=== PATIENT | female | born 1990 | race Caucasian/White ===

== ENCOUNTER 2017-04-07 00:03 | Emergency (ER) | payer OTHER ==
[2017-04-07 00:09] VITALS: RESP 18
[2017-04-07] MEDS ORDERED: KETOROLAC 30 MG/ML 1 ML VIAL IVP STA (01:10)
[2017-04-07] MEDS ORDERED: METOCLOPRAMIDE 5 MG/ML 2 ML VIAL IVP STA (01:10)
[2017-04-07] MEDS ORDERED: SODIUM CHLORIDE 0.9% 500 ML IV ONE (01:10)
[2017-04-07] MEDS ORDERED: diphenhydrAMINE 50 MG/ML 1 ML VIAL IVP STA (01:10)
--- NOTE | 2017-04-07 01:43 | ED ---
Headache HPI - General Chief Complaint: Headache Stated Complaint: Headache Time Seen by Provider: 04/07/17 01:00 Source: patient, RN notes reviewed Mode of arrival: ambulatory Limitations: no limitations - History of Present Illness Initial Comments: This is a 26-year-old female presents emergency Department chief complaint migraine headache. Patient that she has long history of migraine headaches. She states that she took a Fioricet earlier today and also pain pill with no relief of her symptoms. She states is is her typical type of headache but seems slightly worse but not the worst headache of her life. Denies any trauma no fever no chills or neck stiffness. She states she has photophobia and nausea and vomiting. Patient states that occasionally she does have some emergency department for medications. states the headache started this afternoon. Patient has NO KNOWN DRUG ALLERGIES. Denies any chance . - Related Data Home Medications Medication Instructions Recorded Confirmed Butalb/Acetaminophen/Caffeine 1 - 2 cap PO Q4HR 04/07/17 04/07/17 [Fioricet 50-300-40 mg Capsule] Allergies Allergy/AdvReac Type Severity Reaction Status Date / Time No Known Allergies Allergy Verified 04/07/17 00:09 Review of Systems ROS Statement: Those systems with pertinent positive or pertinent negative responses have been documented in the HPI. ROS Other: All systems not noted in ROS Statement are negative. Past Medical History Past Medical History: No Reported History Additional Past Medical History / Comment(s): Migraines History of Any Multi-Drug Resistant Organisms: None Reported Past Surgical History: Tonsillectomy Past Anesthesia/Blood Transfusion Reactions: No Reported Reaction Past Psychological History: No Psychological Hx Reported Smoking Status: Never smoker Past Alcohol Use History: None Reported Past Drug Use History: Marijuana - Past Family History Mother Family Medical History: Pneumonia General Exam Limitations: no limitations General appearance: alert, in no apparent distress Head exam: Present: atraumatic, normocephalic, normal inspection Eye exam: Present: normal appearance, PERRL, EOMI. Absent: scleral icterus, conjunctival injection, periorbital swelling ENT exam: Present: normal exam, normal oropharynx, mucous membranes moist, TM's normal bilaterally, normal external ear exam Neck exam: Present: normal inspection, full ROM. Absent: tenderness, meningismus, lymphadenopathy Respiratory exam: Present: normal lung sounds bilaterally. Absent: respiratory distress, wheezes, rales, rhonchi, stridor Cardiovascular Exam: Present: regular rate, normal rhythm, normal heart sounds. Absent: systolic murmur, diastolic murmur, rubs, gallop, clicks Neurological exam: Present: alert, oriented X3, CN II-XII intact, reflexes normal. Absent: motor sensory deficit Course Vital Signs 04/07/17 00:06 Temperature 98.0 F Pulse Rate 99 Respiratory 18 Rate Blood Pressure 133/86 O2 Sat by Pulse 99 Oximetry Medical Decision Making - Medical Decision Making 26-year-old female presented emergency department with chief complaint of headache. Patient states her headache is improving at this time. Patient has no neurological deficits. Patient will be discharged return parameters were discussed. Disposition Clinical Impression: Migraine Disposition: HOME SELF-CARE Condition: Stable Instructions: Acute Headache (ED) Additional Instructions: Please return to the Emergency Department if symptoms worsen or any other concerns. Referrals: Flavio Hyatt MD [Primary Care Provider] - 1-2 days Time of Disposition: 02:17
[2017-04-07 02:34] VITALS: BP 113/59; PULSE 96; TEMP 97.7
== END 2017-04-07 02:35 | disposition home or self-care (01) ==
LOC: EC 00:03
DX: G43.909 Migraine, unspecified, not intractable, without status migrainosus (principal); Z79.899 Other long term (current) drug therapy
CPT/HCPCS: 99284; 96374; 96375 ×2; 96361; J1200; J2765; J1885

== ENCOUNTER 2020-10-07 04:05 | Inpatient (IN) | payer BC, OTHER ==
[2020-10-07] MEDS ORDERED: LIDOCAINE 0.5% (PF) 5 MG/ML (50 ML SDV) SQ PRN (04:30)
[2020-10-07] MEDS ORDERED: TERBUTALINE 1 MG/ML VIAL SQ PRN (04:30)
[2020-10-07] MEDS ORDERED: OXYTOCIN 10 UNIT/ML 1 ML VIAL IM PRN (04:30)
[2020-10-07] MEDS ORDERED: OXYTOCIN 30 UNITS/500 ML NS 30 UNIT in SALINE 1 500ML.BAG IV SCH (04:30)
[2020-10-07] MEDS ORDERED: CARBOPROST TROMETHAMINE 250 MCG/ML 1 ML AMP IM PRN (04:30)
[2020-10-07] MEDS ORDERED: METHYLERGONOVINE 0.2 MG/ML 1 ML AMP IM PRN (04:30)
[2020-10-07] MEDS ORDERED: LACTATED RINGERS 1,000 ML IV SCH (04:30)
[2020-10-07 04:57] LABS: Basophils % (A) 0 %; Eosinophils # (A) 0.1 k/uL (0-0.7); Eosinophils % (A) 1 %; HCT 37.3 % (34.0-46.0); Lymphocytes # (A) 1.7 k/uL (1.0-4.8); Lymphocytes % (A) 14 %; MCH 33.9 pg (25.0-35.0); MCV 96.9 fL (80.0-100.0); Mean Platelet Volume 7.2; Monocytes # (A) 0.7 k/uL (0-1.0); Monocytes % (A) 6 %; Neutrophils # (A) 9.9 k/uL (1.3-7.7); Neutrophils % (A) 79 %; Platelet Count 177 k/uL (150-450); RBC 3.85 m/uL (3.80-5.40); RDW 13.7 % (11.5-15.5); WBC 12.6 k/uL (3.8-10.6)
[2020-10-07] MEDS: BUTORPHANOL 1 MG/ML 1 ML VIAL IV PRN ×2 (05:28→08:08)
--- NOTE | 2020-10-07 08:17 | P.HPOB ---
History of Present Illness H&P Date: 10/07/20 Chief Complaint: 39+ weeks, early labor The patient is a 30-year-old 2 para 1001 admitted at 39+ weeks as established by last menstrual period and confirmed by second trimester ultrasound. She is admitted in early active labor having made change from 1 cm to 3 cm of dilation with regular contractions. Her has been uncomplicated and group B strep status is negative. On labor and delivery, all signs reassuring with a category 1 heart rate tracing. Obstetrical history: 2 para 1001 with 1 term vaginal delivery without complications. Current statistics are listed in history of present illness. EDC of 10/12/2020 was established by last menstrual period and confirmed by second trimester ultrasound. Laboratory workup demonstrates a blood type of O+ with a negative antibody screen. Rubella status is immune. The remainder of the laboratory workup was within normal limits. One hour Glucola was elevated but followed by a normal three-hour glucose tolerance test. Group B strep status is negative. Gynecologic history: Unremarkable with no history of any infections to include STDs. Review of Systems Review of systems is confined to history of present illness. Past Medical History Past Medical History: No Reported History Additional Past Medical History / Comment(s): Migraines History of Any Multi-Drug Resistant Organisms: None Reported Past Surgical History: Tonsillectomy Past Anesthesia/Blood Transfusion Reactions: No Reported Reaction Past Psychological History: No Psychological Hx Reported Smoking Status: Never smoker Past Alcohol Use History: None Reported Past Drug Use History: Marijuana Additional Drug Use History / Comment(s): hx of thc- quit per pt - Past Family History Mother Family Medical History: COPD, Hyperlipidemia, Hypertension, Pneumonia Sister(s) Family Medical History: Asthma Medications and Allergies Home Medications Medication Instructions Recorded Confirmed Type Acetaminophen [Tylenol] 500 mg PO DIRECTED PRN 10/07/20 10/07/20 History Aspirin [Adult Low Dose Aspirin EC] 81 mg PO DAILY 10/07/20 10/07/20 History Ferrous Sulfate [Feosol] 325 mg PO DAILY 10/07/20 10/07/20 History Pnv,Calcium 72/Iron/Folic Acid 1 each PO DAILY 10/07/20 10/07/20 History [ Plus Tablet] Allergies Allergy/AdvReac Type Severity Reaction Status Date / Time No Known Allergies Allergy Verified 10/07/20 04:12 Exam Vital Signs Temp Pulse Resp BP Pulse Ox 10/07/20 04:23 96.8 F L 90 18 136/80 100 10/07/20 04:14 96.8 F L 83 16 136/80 100 Intake and Output 10/06/20 10/07/20 10/07/20 22:59 06:59 14:59 Other: Weight 78.925 kg In general, this is a well-developed, well-nourished white female in some disco mfort as she is in active labor. Her heart has a regular rhythm and rate without murmur. Her lungs are clear to auscultation bilaterally in all wheeler. Her abdomen is gravid, nondistended, has normal active bowel sounds, soft, nontender, and without any palpable masses aside from the uterine fundus. Her extremities are without any cyanosis, clubbing, or significant edema and are nontender to palpation bilaterally. Digital cervical examination at this time demonstrates her surgery at 8 cm dilated, 80% effaced, with vertex in presentation at -1 station. Artificial rupture of membranes is carried out demonstrating clear fluid. Results Result Diagrams: 10/07/20 04:30 Abnormal Lab Results - Last 24 Hours (Table) 10/07/20 Range/Units 04:30 WBC 12.6 H (3.8-10.6) k/uL Neutrophils # 9.9 H (1.3-7.7) k/uL Assessment and Plan (1) Spontaneous onset of labor Current Visit: Yes Status: Acute Code(s): DAG3845 - SNOMED Code(s): 62579225 (2) 39 weeks gestation of Current Visit: Yes Status: Acute Code(s): Z3A.39 - 39 WEEKS GESTATION OF SNOMED Code(s): 75389475 Plan: The patient has been admitted for close maternal and surveillance and expectant management will be continued. She is a good candidate for either IV or epidural analgesia but is declining epidural. I would anticipate normal spontaneous vaginal delivery in the near future.
[2020-10-07] MEDS ORDERED: ROPIVACAINE 5MG/ML 20ML VIAL ONE (10:04)
[2020-10-07] MEDS ORDERED: fentaNYL (PF) 50 MCG/ML 5 ML AMP ONE (10:04)
[2020-10-07] MEDS ORDERED: SODIUM CHLORIDE 0.9% 100 ML BAG ONE (10:04)
[2020-10-07] MEDS ORDERED: ACETAMINOPHEN TAB 325 MG TAB PO PRN (11:56)
[2020-10-07] MEDS ORDERED: diphenhydrAMINE 50 MG CAP PO PRN (11:56)
[2020-10-07] MEDS ORDERED: ZOLPIDEM 5 MG TAB PO PRN (11:56)
[2020-10-07] MEDS ORDERED: diphenhydrAMINE 50 MG/ML 1 ML VIAL IVP PRN ×2 (11:56)
[2020-10-07] MEDS ORDERED: LANOLIN CREAM 5 GM TUBE TOPICAL PRN (11:56)
[2020-10-07] MEDS ORDERED: BENZOCAINE/MENTHOL SPRAY 1 GM/SPRAY AEROSOL TOPICAL PRN (11:56)
[2020-10-07] MEDS ORDERED: SIMETHICONE 80 MG CHEWABLE PO PRN (11:56)
[2020-10-07] MEDS ORDERED: diphenhydrAMINE 25 MG CAP PO PRN (11:56)
[2020-10-07] MEDS ORDERED: HYDROCORTISONE 2.5% RECTAL CREAM 30 GM TUBE RECTAL PRN (11:56)
--- NOTE | 2020-10-07 11:56 | P.PROBDLV ---
Vaginal Delivery Note - . Vaginal Delivery Note: This is a 30-year-old white female 2 para 1001 EDC 12-20 at 39-2/7 weeks' gestation. Patient presented with a history of uterine contractions at home, in active labor. remarkable for blood type O+, rubella status immune, group B strep cultures negative. Please see dictated history and physical for details. Artificial amniorrhexis revealed clear fluid. Ultimately patient became uncomfortable and an epidural was placed. Oxytocin augmentation was also given a small dose. She became completely dilated at 1045 hrs. and began the second stage of labor at that time. She progressed successfully in the second stage, ultimately the perineal body was prepped and draped in usual sterile fashion. 's head delivered occiput anterior and he restituted accordingly. There was no nuchal cord noted. The right or anterior shoulder was gently delivered from underneath the pubic symphysis at which time the oropharynx, nasopharynx, and external nares were all bulb suctioned. Patient was officially delivered of a liveborn male at 1140 hrs. Umbilical cord was doubly clamped and ligated, he was handed to waiting nurses for evaluation where scores of 9 and 9 at one and 5 minutes respectively were given. Placenta was delivered spontaneously, with active management of the second stage of labor, delivered at 1143 hours. It was inspected and noted to be fully intact with trivascular cord. No meconium staining. Uterus is then massaged. Careful inspection of the cervix, vagina, perineum, periurethral, and perirectal areas revealed a very small superficial right laceration, first-degree but not requiring stitches. weighs 8 lbs. 4 oz. or 3740 g. The patient and her are allowed to begin the bonding experience in the LDR. Patient is requesting circumcision for her infant son. Total estimated blood loss 200 mL's.
[2020-10-07] MEDS ORDERED: OXYTOCIN 20 UNITS/1000 ML NS 1,000 ML IV SCH (12:00)
[2020-10-07] MEDS: IBUPROFEN 600 MG TAB PO PRN (15:40)
[2020-10-07] MEDS: SENNOSIDES-DOCUSATE SODIUM 1 EACH TAB PO SCH (19:59)
[2020-10-08] MEDS: IBUPROFEN 600 MG TAB PO PRN ×3 (02:58→19:15)
[2020-10-08 07:12] LABS: Basophils % (A) 0 %; Eosinophils # (A) 0.1 k/uL (0-0.7); Eosinophils % (A) 1 %; HCT 33.3 % (34.0-46.0); HGB 11.4 gm/dL (11.4-16.0); Lymphocytes # (A) 1.7 k/uL (1.0-4.8); Lymphocytes % (A) 13 %; MCH 33.5 pg (25.0-35.0); MCHC 34.2 g/dL (31.0-37.0); Mean Platelet Volume 7.4; Monocytes # (A) 0.5 k/uL (0-1.0); Monocytes % (A) 4 %; Neutrophils % (A) 80 %; Platelet Count 152 k/uL (150-450); RBC 3.39 m/uL (3.80-5.40); RDW 13.2 % (11.5-15.5); WBC 12.6 k/uL (3.8-10.6)
--- NOTE | 2020-10-08 08:16 | P.PNOBGVD ---
Subjective - Subjective Patient reports: Reports appetite normal, Reports voiding normally, Reports pain well controlled, Reports ambulating normally : doing well, in NICU (Was initially found with a pneumothorax which has resolved, requiring high flow oxygen currently.) Objective - Latest Vital Signs Latest vital signs: Vital Signs Temp Pulse Resp BP Pulse Ox 10/07/20 23:30 97.0 F L 95 16 143/76 99 10/07/20 20:00 97.7 F 103 H 16 125/78 98 10/07/20 16:00 86 16 125/79 96 10/07/20 14:01 98.2 F 96 16 119/67 10/07/20 13:31 95 16 118/63 10/07/20 13:01 113 H 16 124/63 10/07/20 12:46 99 16 115/61 10/07/20 12:31 100 16 110/58 10/07/20 12:16 103 H 16 109/63 10/07/20 12:01 98.7 F 112 H 16 121/60 98 Intake and Output 10/07/20 10/08/20 10/08/20 22:59 06:59 14:59 Output Total 200 Balance -200 Output: Estimated Blood Loss 200 Other: # Voids 1 2 - Exam Extremities: Present: normal Abdomen: Present: normal appearance, soft Uterus: Present: normal, firm (The uterine fundus is tonic and nontender below the umbilicus.) - Labs Labs: Abnormal Lab Results - Last 24 Hours (Table) 10/08/20 Range/Units 06:49 WBC 12.6 H (3.8-10.6) k/uL RBC 3.39 L (3.80-5.40) m/uL Hct 33.3 L (34.0-46.0) % Neutrophils # 10.0 H (1.3-7.7) k/uL Assessment and Plan (1) Spontaneous onset of labor Current Visit: Yes Status: Acute Code(s): NCH8929 - SNOMED Code(s): 20199689 (2) 39 weeks gestation of Current Visit: Yes Status: Acute Code(s): Z3A.39 - 39 WEEKS GESTATION OF SNOMED Code(s): 72105146 (3) Normal spontaneous vaginal delivery Current Visit: No Status: Acute Code(s): O80 - ENCOUNTER FOR FULL-TERM UNCOMPLICATED DELIVERY SNOMED Code(s): 46796847 Plan: Continue routine care as the remains in the nursery. I would anticipate discharge home tomorrow pending applications.
[2020-10-08] MEDS: SENNOSIDES-DOCUSATE SODIUM 1 EACH TAB PO SCH ×2 (08:35→19:16)
[2020-10-09] MEDS: IBUPROFEN 600 MG TAB PO PRN ×2 (07:03→16:22)
[2020-10-09] MEDS: SENNOSIDES-DOCUSATE SODIUM 1 EACH TAB PO SCH (07:04)
--- NOTE | 2020-10-09 11:23 | P.DS ---
Providers Date of admission: 10/07/20 04:18 Expected date of discharge: 10/09/20 Attending physician: Valeria Tobin Primary care physician: Stated None - Discharge Diagnosis(es) (1) Spontaneous onset of labor Current Visit: Yes Status: Acute (2) 39 weeks gestation of Current Visit: Yes Status: Acute (3) Normal spontaneous vaginal delivery Current Visit: No Status: Acute Hospital Course: The patient is a 30-year-old 2 para 1001 admitted at 39+ weeks by good dating parameters perches admitted in early active labor with all signs reassuring. Her was uncomplicated and group B strep status was negative. On labor and delivery, she made fairly rapid progress through the active phase of labor and had artificial rupture of membranes carried out demonstrating clear fluid. She then stalled at approximately anterior lip for some time but ultimately did progress to complete and then pushed to a normal spontaneous vaginal delivery of a viable 8 lbs. 4 oz. baby boy with Apgars of 9 at 1 minute and 9 at 5 minutes. Her course was unremarkable with vital signs remaining stable and her temperature was afebrile throughout. The , however, was found with a pneumothorax following delivery and was admitted to the special care nursery where he remains today though is doing well and likely be discharged tomorrow. The patient herself was deemed stable for discharge on day #2 was discharged home to follow-up in the office in 6 weeks' time routinely. Discharge instructions included calling for any significantly increased bleeding or foul-smelling lochia, significantly increased fever abdominal pain, perineal complaints, breast complaints, or anything else that concerned her. She is additionally instructed to have nothing in the vagina for at least 6 weeks time to include intercourse. She understood her instructions and agrees to follow up as noted above. Discharge medications included continued vitamins as she has opted to breast-feed as well as [id number] analgesic pain medications. Maternal blood type is O+ and rubella status is immune. Procedures: #1. Artificial rupture of membranes #2. Epidural analgesia #3. Normal spontaneous vaginal delivery #4. Repair of perineal laceration Patient Condition at Discharge: Stable Plan - Discharge Summary New Discharge Prescriptions: No Action Ferrous Sulfate [Feosol] 325 mg PO DAILY Acetaminophen [Tylenol] 500 mg PO DIRECTED PRN PRN Reason: Pain Pnv,Calcium 72/Iron/Folic Acid [ Plus Tablet] 1 each PO DAILY Aspirin [Adult Low Dose Aspirin EC] 81 mg PO DAILY Discharge Medication List Acetaminophen [Tylenol] 500 mg PO DIRECTED PRN 10/07/20 [History] Aspirin [Adult Low Dose Aspirin EC] 81 mg PO DAILY 10/07/20 [History] Ferrous Sulfate [Feosol] 325 mg PO DAILY 10/07/20 [History] Pnv,Calcium 72/Iron/Folic Acid [ Plus Tablet] 1 each PO DAILY 10/07/20 [History] Follow up Appointment(s)/Referral(s): Valeria Tobin MD [STAFF PHYSICIAN] - 6 Weeks Discharge Disposition: HOME SELF-CARE
[2020-10-09 16:37] VITALS: BP 131/78; PULSE 86; RESP 16; TEMP 97.9
== END 2020-10-09 18:00 | disposition home or self-care (01) | DRG 807 ==
LOC: FBPOP 04:05 → 4FBP 04:18
PROVIDERS: ADMIT Obstetrics & Gynecology; ATTEND Obstetrics & Gynecology
PROC: 10E0XZZ Delivery of Products of Conception, External Approach (ICD-10-PCS; principal; 2020-10-07)
PROC: 10907ZC Drainage of Amniotic Fluid, Therapeutic from Products of Conception, Via Natural or Artificial Opening (ICD-10-PCS; 2020-10-07)
PROC: 3E0R3NZ Introduction of Analgesics, Hypnotics, Sedatives into Spinal Canal, Percutaneous Approach (ICD-10-PCS; 2020-10-07)
PROC: 00HU33Z Insertion of Infusion Device into Spinal Canal, Percutaneous Approach (ICD-10-PCS; 2020-10-07)
DX: O70.0 First degree perineal laceration during delivery (principal); Z37.0 Single live birth; Z3A.39 39 weeks gestation of pregnancy; Z79.82 Long term (current) use of aspirin; Z82.49 Family history of ischemic heart disease and other diseases of the circulatory system; Z82.5 Family history of asthma and other chronic lower respiratory diseases
CPT/HCPCS: 59025; 85025; 86850; 86900; 86901; 99213

== ENCOUNTER 2024-02-07 23:34 | Inpatient (IN) | payer OTHER ==
[2024-02-08] MEDS ORDERED: LIDOCAINE 0.5% (PF) 5 MG/ML (50 ML SDV) SQ PRN (00:02)
[2024-02-08] MEDS ORDERED: METHYLERGONOVINE 0.2 MG/ML 1 ML AMP IM PRN (00:02)
[2024-02-08] MEDS ORDERED: miSOPROStoL 200 MCG TAB PO PRN (00:02)
[2024-02-08] MEDS ORDERED: OXYTOCIN 10 UNIT/ML 1 ML VIAL IM PRN (00:02)
[2024-02-08] MEDS ORDERED: TRANEXAMIC 1,000 MG/100ML-NACL 1,000 MG in EMPTY BAG 1 BAG IV PRN (00:02)
[2024-02-08] MEDS ORDERED: TERBUTALINE 1 MG/ML VIAL SQ PRN (00:02)
[2024-02-08] MEDS ORDERED: CARBOPROST TROMETHAMINE 250 MCG/ML 1 ML AMP IM PRN (00:02)
[2024-02-08] MEDS ORDERED: OXYTOCIN 30 UNITS/500 ML NS 30 UNIT in SALINE 1 500ML.BAG IV SCH (00:15)
[2024-02-08 00:23] LABS: Basophils # (A) 0.1 k/uL (0-0.2); Basophils % (A) 0 %; Eosinophils # (A) 0.2 k/uL (0-0.7); Eosinophils % (A) 1 %; HCT 39.3 % (34.0-46.0); HGB 13.1 gm/dL (11.4-16.0); Lymphocytes # (A) 1.9 k/uL (1.0-4.8); Lymphocytes % (A) 12 %; MCH 31.1 pg (25.0-35.0); MCHC 33.3 g/dL (31.0-37.0); MCV 93.4 fL (80.0-100.0); Mean Platelet Volume 7.7; Monocytes # (A) 0.7 k/uL (0-1.0); Monocytes % (A) 5 %; Neutrophils # (A) 12.8 k/uL (1.3-7.7); Neutrophils % (A) 81 %; Platelet Count 238 k/uL (150-450); RBC 4.21 m/uL (3.80-5.40); RDW 13.7 % (11.5-15.5); WBC 15.9 k/uL (3.8-10.6)
[2024-02-08] MEDS ORDERED: SODIUM CHLORIDE 0.9% 250 ML BAG ONE (00:40)
[2024-02-08] MEDS ORDERED: ROPIVACAINE 5 MG/ML 30 ML VIAL ONE (00:40)
[2024-02-08] MEDS ORDERED: fentaNYL (PF) 50 MCG/ML 5 ML AMP ONE (00:40)
[2024-02-08] MEDS: LACTATED RINGERS 1,000 ML IV SCH (00:52)
--- NOTE | 2024-02-08 01:28 | P.HPOB ---
History of Present Illness H&P Date: 02/08/24 Chief Complaint: Labor at 39-5/7 weeks This is a 33-year-old 4 para 2012 woman who is admitted at 39-5/7 weeks gestation in spontaneous active labor. She has an estimated due date of 02/09/2024 based on LMP consistent with first trimester ultrasound. She reports onset of regular painful contractions earlier in the day. She denies leakage of fluid or vaginal bleeding her has been uncomplicated. She has had an upper respiratory tract infection for several days and a history of asthma. Laboratory data: Blood type O positive, antibody screen negative, rubella immune, VDRL nonreactive, hepatitis B surface antigen negative, HIV negative, hepatitis C negative, gonorrhea and clinic cultures negative, glucose tolerance testing within normal limits, group B strep negative Obstetric history: Normal spontaneous vaginal deliveries 2014 and 2019. First trimester missed AB 2022 Medical history asthma and migraine headaches Past surgical history tonsillectomy Social history engaged to be , negative for tobacco alcohol and drug use. Family history noncontributory Review of Systems All systems: negative Past Medical History Past Medical History: Asthma Additional Past Medical History / Comment(s): Migraines History of Any Multi-Drug Resistant Organisms: None Reported Past Surgical History: Tonsillectomy Past Anesthesia/Blood Transfusion Reactions: No Reported Reaction Past Psychological History: Anxiety Smoking Status: Never smoker Past Alcohol Use History: None Reported Past Drug Use History: Marijuana Additional Drug Use History / Comment(s): hx of thc- quit per pt - Past Family History Mother Family Medical History: COPD, Hyperlipidemia, Hypertension, Pneumonia Sister(s) Family Medical History: Asthma Medications and Allergies Home Medications Medication Instructions Recorded Confirmed Type Acetaminophen [Tylenol] 500 mg PO DIRECTED PRN 10/07/20 10/07/20 History Aspirin [Adult Low Dose Aspirin EC] 81 mg PO DAILY 10/07/20 02/07/24 History Vit No.180/Iron/Folic 1 each PO DAILY 10/07/20 02/07/24 History [ Plus Tablet] Allergies Allergy/AdvReac Type Severity Reaction Status Date / Time No Known Allergies Allergy Verified 10/07/20 04:12 Exam Vital Signs Temp Pulse Resp BP Pulse Ox 02/08/24 00:01 97.7 F 90 16 138/83 100 02/07/24 23:36 97.7 F 90 18 138/83 100 Intake and Output 02/07/24 02/07/24 02/08/24 14:59 22:59 06:59 Other: Weight 84.822 kg On my initial evaluation she is comfortable with an epidural anesthetic. Targeted exam is performed. Cervix is 9 cm dilated and 100% effaced. There is no palpable amniotic membranes or fluid noted on exam. Vertex is in the -1 station. heart tones are category 1 and she is paz every 2-4 minutes spontaneously. Results Result Diagrams: 02/08/24 00:01 Abnormal Lab Results - Last 24 Hours (Table) 02/08/24 Range/Units 00:01 WBC 15.9 H (3.8-10.6) k/uL Neutrophils # 12.8 H (1.3-7.7) k/uL Assessment and Plan (1) 39 weeks gestation of Current Visit: No Status: Acute Code(s): Z3A.39 - 39 WEEKS GESTATION OF SNOMED Code(s): 94571033 (2) Spontaneous onset of labor Current Visit: No Status: Acute Code(s): LPH3691 - SNOMED Code(s): 45982805 Plan: 33-year-old 4 para 2012 woman admitted at 39-5/7 weeks gestation in spontaneous active labor. She is group B strep negative and Rh+. status reassuring by external monitoring. Anticipate normal spontaneous vaginal delivery.
[2024-02-08 03:21] VITALS: RESP 16
[2024-02-08] MEDS: OXYTOCIN 30 UNITS/500 ML NS 30 UNIT in SALINE 1 500ML.BAG IV SCH (03:48)
[2024-02-08] MEDS ORDERED: diphenhydrAMINE 50 MG CAP PO PRN (03:56)
[2024-02-08] MEDS ORDERED: ZOLPIDEM 5 MG TAB PO PRN (03:56)
[2024-02-08] MEDS ORDERED: diphenhydrAMINE 50 MG/ML 1 ML VIAL IVP PRN ×2 (03:56)
[2024-02-08] MEDS ORDERED: ACETAMINOPHEN TAB 325 MG TAB PO PRN (03:56)
[2024-02-08] MEDS ORDERED: HYDROCORTISONE 2.5% RECTAL CREAM 30 GM TUBE RECTAL PRN (03:56)
[2024-02-08] MEDS ORDERED: LANOLIN CREAM 1 GM TUBE TOPICAL PRN (03:56)
[2024-02-08] MEDS ORDERED: SIMETHICONE 80 MG CHEWABLE PO PRN (03:56)
[2024-02-08] MEDS ORDERED: diphenhydrAMINE 25 MG CAP PO PRN (03:56)
--- NOTE | 2024-02-08 03:56 | P.PROBDLV ---
Vaginal Delivery Note - . Vaginal Delivery Note: Findings: Female in the vertex right occiput anterior position with Apgars of 8 at 1 minute and 9 at 5 minutes weighing 8 lbs. 1 oz. Intact three- vessel cord placenta. EBL 100 mL's. Delivery summary: This is a 33-year-old 4 para 2012 woman who is admit alejandro at 39-5/7 weeks gestation in spontaneous active labor. She was 6 cm on admission. She received an epidural anesthetic. She underwent artificial rupture of membranes and scant clear fluid was noted. She did progress to complete cervical dilation and had a very rapid second stage of labor with category 2 heart tones. With she was repositioned into the modified Kaleigh position and with maternal effort 2 with the head delivered from the right occiput anterior position the anterior followed by the posterior shoulders were delivered without difficulty. The was delivered onto the field and the nose and mouth were bulb suctioned. The infant was placed on the maternal abdomen. Eventually the cord was clamped and cut. Apgars were 8 at 1 minute and 9 at 5 minutes. An intact, three-vessel cord placenta was expressed after a rapid third stage of labor. The perineum was inspected and no lacerations were noted. The uterus was massaged and was noted to be firm at the level of the umbilicus. All counts were correct. Both mother and infant were doing well post delivery in the room.
[2024-02-08] MEDS: BENZOCAINE/MENTHOL SPRAY 1 GM/SPRAY AEROSOL TOPICAL PRN (04:27)
[2024-02-08] MEDS: IBUPROFEN 600 MG TAB PO PRN (05:15)
[2024-02-08] MEDS: SENNOSIDES-DOCUSATE SODIUM 1 EACH TAB PO SCH (08:30)
[2024-02-08 23:23] VITALS: TEMP 97.6
[2024-02-09 08:29] LABS: Basophils # (A) 0.1 k/uL (0-0.2); Basophils % (A) 0 %; Eosinophils # (A) 0.2 k/uL (0-0.7); Eosinophils % (A) 2 %; HCT 32.4 % (34.0-46.0); HGB 10.5 gm/dL (11.4-16.0); Lymphocytes # (A) 2.3 k/uL (1.0-4.8); Lymphocytes % (A) 21 %; MCH 31.3 pg (25.0-35.0); MCHC 32.5 g/dL (31.0-37.0); MCV 96.5 fL (80.0-100.0); Mean Platelet Volume 8.1; Monocytes # (A) 0.6 k/uL (0-1.0); Monocytes % (A) 5 %; Neutrophils # (A) 7.4 k/uL (1.3-7.7); Neutrophils % (A) 68 %; Platelet Count 189 k/uL (150-450); RBC 3.36 m/uL (3.80-5.40); RDW 13.9 % (11.5-15.5); WBC 10.9 k/uL (3.8-10.6)
[2024-02-09 09:34] VITALS: BP 119/78; PULSE 90
--- NOTE | 2024-02-09 09:58 | P.DS ---
Providers Date of admission: 02/07/24 23:50 Expected date of discharge: 02/09/24 Attending physician: Elsie Pride Primary care physician: Stated None - Discharge Diagnosis(es) (1) 39 weeks gestation of Current Visit: No Status: Acute (2) Spontaneous onset of labor Current Visit: No Status: Acute (3) Normal spontaneous vaginal delivery Current Visit: No Status: Acute Hospital Course: This is a 33-year-old 4 now para 3013 woman who is admitted in spontaneous active labor at 39-5/7 weeks gestation. She omplicated . At the time of admission she was 6 cm dilated. She received an epidural anesthetic and underwent artificial rupture of membranes. She had an unremarkable and rapid progression to complete cervical dilation with reassuring heart tones. She had a rapid stage of labor to deliver a liveborn female infant over an intact perineum weighing 8 pounds 1 ounce. Apgars were 8 at 1 minute and 9 at 5 minutes. Her course was unremarkable. By day #1 she was ambulating and voiding without difficulty. Her vital signs and blood work were within normal limits. She is breast-feeding successfully. Her lochia was decreasing. She was therefore discharged home with routine instructions for care and follow-up. Patient Condition at Discharge: Good Plan - Discharge Summary New Discharge Prescriptions: New Ibuprofen [Motrin] 600 mg PO Q6HR PRN tab PRN Reason: Mild Pain (Scale 1 To 3) Acetaminophen Tab [Tylenol] 650 mg PO Q4HR PRN tab PRN Reason: Mild Pain Or Fever >= 100.5 Continue Vit No.180/Iron/Folic [ Plus Vitamin-Mineral] 1 each PO DAILY Discontinued Aspirin [Adult Low Dose Aspirin EC] 81 mg PO DAILY No Action Acetaminophen [Tylenol] 500 mg PO DIRECTED PRN PRN Reason: Pain Discharge Medication List Acetaminophen [Tylenol] 500 mg PO DIRECTED PRN 10/07/20 [History] Vit No.180/Iron/Folic [ Plus Vitamin-Mineral] 1 each PO DAILY 10/07/20 [History] Acetaminophen Tab [Tylenol] 650 mg PO Q4HR PRN tab 02/09/24 [Rx] Ibuprofen [Motrin] 600 mg PO Q6HR PRN tab 02/09/24 [Rx] Follow up Appointment(s)/Referral(s): Elsie Pride MD [STAFF PHYSICIAN] - 6 Weeks Activity/Diet/Wound Care/Special Instructions: Follow-up in the office in 6 weeks . Call with any concerning signs or symptoms including heavy vaginal bleeding, severe abdominal pain, fever greater than 101, swelling or redness of the lower extremities, foul vaginal discharge, or signs of depression. Nothing in the vagina for 6 weeks after delivery, specifically no intercourse. Discharge Disposition: HOME SELF-CARE
== END 2024-02-09 11:38 | disposition home or self-care (01) | DRG 560 ==
LOC: FBPOP 23:34 → 4FBP 23:50
PROVIDERS: ADMIT Obstetrics & Gynecology; ATTEND Obstetrics & Gynecology
PROC: 10E0XZZ Delivery of Products of Conception, External Approach (ICD-10-PCS; principal; 2024-02-08)
DX: O62.3 Precipitate labor (principal); Z37.0 Single live birth; J06.9 Acute upper respiratory infection, unspecified; J45.909 Unspecified asthma, uncomplicated; Z28.310 Unvaccinated for COVID-19; O99.52 Diseases of the respiratory system complicating childbirth; Z3A.39 39 weeks gestation of pregnancy; Z79.82 Long term (current) use of aspirin; Z79.899 Other long term (current) drug therapy
CPT/HCPCS: 59025; 85025; 86850; 86900; 86901; 99213

== ENCOUNTER → 2025-03-29 | Outpatient (CLI) | payer OTHER ==
[2025-03-29 16:44] LABS: Basophils # (A) 0.05 X 10*3/uL (0.00-0.10); Basophils % (A) 0.7 %; Eosinophils # (A) 0.14 X 10*3/uL (0.04-0.35); HCT 38.8 % (37.2-46.3); Lymphocytes # (A) 2.16 X 10*3/uL (0.90-5.00); Lymphocytes % (A) 30.6 %; MCH 30.4 pg (27.0-32.0); MCHC 33.5 g/dL (32.0-37.0); MCV 90.9 FL (80.0-97.0); Monocytes # (A) 0.51 X 10*3/uL (0.20-1.00); Monocytes % (A) 7.2 %; NRBC Per 100 WBC 0 X 10*3/uL (0.00-0.01); Neutrophils % (A) 59.4 %; Platelet Count 257 X 10*3/uL (140-440); RBC 4.27 X 10*6/uL (4.10-5.20); RDW 11.9 % (11.5-14.5); WBC 7.07 X 10*3/uL (4.50-10.00)
[2025-03-29 16:59] LABS: ALT 10 U/L (8-44); AST 24 U/L (13-35); Albumin 4.9 g/dL (3.8-4.9); Albumin/Globulin Ratio 2.33 Ratio (1.60-3.17); Alkaline Phosphatase 82 U/L (41-126); Blood Urea Nitrogen 14.8 mg/dL (9.0-27.0); Calcium 9.7 mg/dL (8.7-10.3); Carbon Dioxide 22.4 mmol/L (21.6-31.8); Chloride 106 mmol/L (96-109); Chol/HDL Ratio 4.52 Ratio; Globulin 2.1 g/dL (1.6-3.3); Glucose 90 mg/dL (70-110); LDL Cholesterol,Calculated 105.9 mg/dL (0.0-131.0); Potassium 4.1 mmol/L (3.5-5.5); Sodium 140 mmol/L (135-145); T4, Free (Free Thyroxine) 1.01 ng/dL (0.80-1.80); Total Bilirubin 0.3 mg/dL (0.3-1.2)
== END | disposition home or self-care (01) ==
LOC: LABWHC1 10:05
PROVIDERS: ATTEND Student in an Organized Health Care Education/Training Program
DX: Z13.220 Encounter for screening for lipoid disorders (principal); Z13.1 Encounter for screening for diabetes mellitus; M79.89 Other specified soft tissue disorders; F41.9 Anxiety disorder, unspecified
CPT/HCPCS: 36415; 80053; 80061; 83036; 84439; 84443; 85025